=== PATIENT | female | born 1990 | race Caucasian/White ===

== ENCOUNTER 2020-05-19 13:17 | Inpatient (IN) | payer OTHER ==
[~2020-05-19] VITALS: Ht 162.6 cm; Wt 107.0 kg
[2020-06-02] MEDS ORDERED: PRENATAL TABLE1 EAC1 PO (13:19)
== END 2020-06-04 11:42 | disposition home or self-care (01) | DRG 807 ==
LOC: LDR 06-02 12:04 → OB/GYN 06-02 12:04 → SURH 06-09 13:30
PROVIDERS: ADMIT Specialist; ATTEND Specialist
PROC: 10E0XZZ Delivery of Products of Conception, External Approach (ICD-10-PCS; principal; 2020-06-02)
PROC: 0UQGXZZ Repair Vagina, External Approach (ICD-10-PCS; 2020-06-02)
PROC: 4A1HXCZ Monitoring of Products of Conception, Cardiac Rate, External Approach (ICD-10-PCS; 2020-06-02)
DX: O71.4 Obstetric high vaginal laceration alone (principal); Z37.0 Single live birth; Z3A.39 39 weeks gestation of pregnancy; Z20.828 Contact with and (suspected) exposure to other viral communicable diseases

== ENCOUNTER 2021-01-03 07:48 | Day surgery (SDC) | payer OTHER ==
[~2021-01-03 07:48] MED LIST: PRENATAL TABLE1 EAC1 PO
[2021-01-03] MEDS ORDERED: PERCOCET 5-3251 EACH PO (10:19)
== END 2021-01-03 17:00 | disposition home or self-care (01) ==
LOC: CIR.AMB 07:48
PROVIDERS: ATTEND Obstetrics & Gynecology Gynecology
DX: Z30.2 Encounter for sterilization (principal); Z20.822 Contact with and (suspected) exposure to COVID-19